=== PATIENT | female | born 1985 | race Caucasian/White ===

== ENCOUNTER 2023-01-13 23:00 | Inpatient (IN) | payer SELFPAY ==
[2023-01-13] MEDS ORDERED: SODIUM CHLORIDE 0.9% 1,000 ML IV STA (23:08)
[2023-01-13] MEDS ORDERED: PIPERACILLIN-TAZOBACTAM 3.375 GM in SODIUM CHLORIDE 0.9% 100 ML IVPB STA (23:09)
[2023-01-13] MEDS ORDERED: ONDANSETRON 4 MG/2 ML VIAL IVP PRN (23:15)
[2023-01-13] MEDS ORDERED: NALOXONE 0.4 MG/ML 1 ML VIAL IV PRN (23:15)
[2023-01-13] MEDS ORDERED: MORPHINE SULFATE 4 MG/ML SYRINGE IV PRN (23:15)
--- NOTE | 2023-01-13 23:19 | ED ---
Abdominal Pain HPI - General Chief Complaint: Abdominal Pain Stated Complaint: Appendicitis Time Seen by Provider: 01/13/23 23:02 Source: patient, EMS, RN notes reviewed Mode of arrival: EMS Limitations: no limitations - History of Present Illness Initial Comments: This is a 37-year-old female who presents to the emergency department for abdominal pain. Patient is a transfer from [facility], where she was diagnosed with appendicitis with perforation earlier today. The right lower quadrant abdominal pain has been present and worsening over the last 3 days. She's had intermittent nausea and a decreased appetite. She has not had any fevers or urinary symptoms. She denies any surgical or medical history. They started her on Zosyn and gave her Toradol prior to arrival, which effectively managed her pain. MD Complaint: abdominal pain Onset/Timin -: days(s) Location: RLQ - Related Data Allergies Allergy/AdvReac Type Severity Reaction Status Date / Time No Known Allergies Allergy Verified 01/13/23 23:19 Review of Systems ROS Statement: Those systems with pertinent positive or pertinent negative responses have been documented in the HPI. ROS Other: All systems not noted in ROS Statement are negative. General Exam Limitations: no limitations General appearance: alert, in no apparent distress Head exam: Present: atraumatic, normocephalic, normal inspection Respiratory exam: Present: normal lung sounds bilaterally. Absent: respiratory distress, wheezes, rales, rhonchi, stridor Cardiovascular Exam: Present: regular rate, normal rhythm, normal heart sounds. Absent: systolic murmur, diastolic murmur, rubs, gallop, clicks GI/Abdominal exam: Present: soft, tenderness (RLQ), hyperactive bowel sounds. Absent: distended Neurological exam: Present: alert, oriented X3, CN II-XII intact Psychiatric exam: Present: normal affect, normal mood Skin exam: Present: warm, dry, intact, normal color. Absent: rash Course Vital Signs 01/13/23 01/14/23 01/14/23 23:10 00:02 02:34 Temperature 98.2 F Pulse Rate 98 97 90 Respiratory 18 16 16 Rate Blood Pressure 109/72 115/72 108/68 O2 Sat by Pulse 95 97 97 Oximetry Medical Decision Making - Medical Decision Making This is a 37-year-old female who presents to the emergency department as a trans starla for appendicitis with perforation. Was pt. sent in by a medical professional or institution? @ -Dr. Moraes at [facility] Did you speak to anyone other than the patient for history? @ -No Did you review nursing and triage notes? @ -Yes, and I agree, it is accurate with regards to the patient's symptoms. Were old charts reviewed? @ -Lab work and imaging obtained at [facility] demonstrating a WBC of 26.[address] scan findings demonstrating acute appendicitis with perforation of the appendix. They started her on IV Zosyn prior to transfer. Differential Diagnosis? @ -Differential Abdominal Pain Women: Appendicitis, Cholecystitis, diverticulosis, ischemic bowel, pancreatitis, hepatitis, UTI, gastroenteritis, AAA, incarcerated hernia, bowel obstruction, constipation, inflammatory bowel, hepatitis, peptic ulcer disease, splenic infarction, perforated viscus, vulvitis, ovarian torsion, PID, kidney stone, placenta abruption, this is not meant to be an all-inclusive list EKG interpreted by me (3pts min.)? @ -Not obtained X-rays interpreted by me (1pt min.)? @ -Not obtained CT interpreted by me (1pt min.)? @ -Not obtained U/S interpreted by me (1pt. min.)? @ -Not obtained What testing was considered but not performed? (CT, X-rays, U/S, labs)? Why? @ -None What meds were considered but not given? Why? @ -None Did you discuss the management of the patient with other professionals? @ -Yes, Dr. Lemons, general surgery, who accepts the patient for admission. Did you reconcile home meds? @ -No Was smoking cessation discussed for >3mins.? @ -No Was critical care preformed (if so, how long)? @ -No Were there social determinants of health that impacted care today? How? (Homelessness, low income, unemployed, alcoholism, drug addiction, transportation, low edu. Level, literacy, decrease access to med. care, nursing home, rehab)? @ -No Was there de-escalation of care discussed even if they declined? (Discuss DNR or withdrawal of care, Hospice)? @ -No What co-morbidities impacted this encounter? (DM, HTN, Smoking, COPD, CAD, Cancer, CVA, Hep., AIDS, mental health diagnosis, sleep apnea, morbid obesity)? @ -None Was patient admitted / discharged? @ -Admitted. Outside records from [facility] were reviewed. Patient was found to have appendicitis with perforation and also met septic criteria with a white blood cell count of 26.4 and tachycardia. They started her on IV fluids and Zosyn. On arrival, IV fluids and Zosyn were continued. She was kept NPO and admitted to general surgery for further management. The disc containing the CT scan sent with the patient from [place] was uploaded to the system for review. Undiagnosed new problem with uncertain prognosis? @ -None Drug Therapy requiring intensive monitoring for toxicity (Heparin, Nitro, Insul in, Cardizem)? @ -None Were any procedures done? @ -None Diagnosis/symptom? @ -Appendicitis with perforation, sepsis Acute, or Chronic, or Acute on Chronic? @ -Acute Uncomplicated (without systemic symptoms) or Complicated (systemic symptoms)? @ -Complicated Side effects of treatment? @ -None Exacerbation, Progression, or Severe Exacerbation] @ -Not applicable Poses a threat to life or bodily function? @ -Yes This case was discussed in detail with the attending ED physician, Dr. Smith. Presentation, findings, and treatment plan discussed in detail as well. - Lab Data Result diagrams: 01/13/23 00:01 01/13/23 00:01 Lab Results 01/13/23 01/13/23 01/13/23 Range/Units 00:01 00:01 00:01 WBC 19.1 H (3.8-10.6) k/uL RBC 3.84 (3.80-5.40) m/uL Hgb 11.8 (11.4-16.0) gm/dL Hct 33.9 L (34.0-46.0) % MCV 88.1 (80.0-100.0) fL MCH 30.6 (25.0-35.0) pg MCHC 34.8 (31.0-37.0) g/dL RDW 13.6 (11.5-15.5) % Plt Count 214 (150-450) k/uL MPV 6.8 Neutrophils % 87 % Lymphocytes % 9 % Monocytes % 3 % Eosinophils % 0 % Basophils % 0 % Neutrophils # 16.6 H (1.3-7.7) k/uL Lymphocytes # 1.7 (1.0-4.8) k/uL Monocytes # 0.5 (0-1.0) k/uL Eosinophils # 0.0 (0-0.7) k/uL Basophils # 0.0 (0-0.2) k/uL Sodium 136 L (137-145) mmol/L Potassium 3.5 (3.5-5.1) mmol/L Chloride 105 (98-107) mmol/L Carbon Dioxide 18 L (22-30) mmol/L Anion Gap 13 mmol/L BUN 11 (7-17) mg/dL Creatinine 0.68 (0.52-1.04) mg/dL Est GFR (CKD-EPI)AfAm >90 (>60 ml/min/1.73 sqM) Est GFR (CKD-EPI)NonAf >90 (>60 ml/min/1.73 sqM) Glucose 114 H (74-99) mg/dL Plasma Lactic Acid Vipul 0.8 (0.7-2.0) mmol/L Calcium 7.7 L (8.4-10.2) mg/dL Total Bilirubin 0.7 (0.2-1.3) mg/dL AST 14 (14-36) U/L ALT 15 (4-34) U/L Alkaline Phosphatase 112 (38-126) U/L Total Protein 6.1 L (6.3-8.2) g/dL Albumin 3.2 L (3.5-5.0) g/dL - Radiology Data Radiology results: report reviewed, image reviewed Disposition Clinical Impression: Perforated appendicitis, Sepsis Disposition: ADMITTED IP TO THIS HOSP
[2023-01-14 00:38] LABS: Basophils % (A) 0 %; Eosinophils % (A) 0 %; HCT 33.9 % (34.0-46.0); HGB 11.8 gm/dL (11.4-16.0); Lymphocytes # (A) 1.7 k/uL (1.0-4.8); Lymphocytes % (A) 9 %; MCH 30.6 pg (25.0-35.0); MCHC 34.8 g/dL (31.0-37.0); MCV 88.1 fL (80.0-100.0); Mean Platelet Volume 6.8; Monocytes # (A) 0.5 k/uL (0-1.0); Monocytes % (A) 3 %; Neutrophils # (A) 16.6 k/uL (1.3-7.7); Neutrophils % (A) 87 %; Platelet Count 214 k/uL (150-450); RBC 3.84 m/uL (3.80-5.40); RDW 13.6 % (11.5-15.5); WBC 19.1 k/uL (3.8-10.6)
[2023-01-14 00:51] LABS: ALT 15 U/L (4-34); AST 14 U/L (14-36); African American GFR (CKD) >90 (>60 ml/min/1.73 sqM); Albumin 3.2 g/dL (3.5-5.0); Alkaline Phosphatase 112 U/L (38-126); Anion Gap 13 mmol/L; Blood Urea Nitrogen 11 mg/dL (7-17); Calcium 7.7 mg/dL (8.4-10.2); Carbon Dioxide 18 mmol/L (22-30); Chloride 105 mmol/L (98-107); Glucose 114 mg/dL (74-99); Non-African American GFR(CKD) >90 (>60 ml/min/1.73 sqM); Potassium 3.5 mmol/L (3.5-5.1); Sodium 136 mmol/L (137-145); Total Bilirubin 0.7 mg/dL (0.2-1.3); Total Protein 6.1 g/dL (6.3-8.2)
[2023-01-14] MEDS: KETOROLAC 15 MG/ML 1 ML VIAL IVP PRN ×2 (02:37→20:21)
[2023-01-14] MEDS ORDERED: ACETAMINOPHEN IV (For NPO) 1,000 MG in EMPTY BAG 1 BAG IVPB PRN (04:07)
[2023-01-14 06:51] LABS: HCG,Qualitative Serum Not Detected
[2023-01-14] MEDS: PIPERACILLIN-TAZOBACTAM 3.375 GM in SODIUM CHLORIDE 0.9% 100 ML IVPB SCH ×2 (08:35→21:29)
--- NOTE | 2023-01-14 13:13 | P.GSHP ---
History of Present Illness H&P Date: 01/14/23 CHIEF COMPLAINT: Abdominal pain HISTORY OF PRESENT ILLNESS: This is a 37-year-old female presented to the hospital with complaints of right lower quadrant abdominal pain that started 4 days ago. She does complain of having nausea and vomiting. She initially went to [facility] computed tomography scan abdomen and pelvis had shown evidence of a perforated appendicitis. Patient was then transferred to [facility] for surgical evaluation. Patient had evidence of leukocytosis and t achycardia on admission at [facility]. She denies any prior abdominal surgery. Denies any medical history of cardiac history. She reports having some chills. PAST MEDICAL HISTORY: See list. PAST SURGICAL HISTORY: See list. MEDICATIONS: See list. ALLERGIES: See list. SOCIAL HISTORY: No illicit drug use. REVIEW OF SYSTEMS: CONSTITUTIONAL: Denies fever or chills. HEENT: Denies blurred vision, vision changes, or eye pain. Denies hemoptysis ENDOCRINE: Denies heat or cold intolerance. CARDIOVASCULAR: Denies chest pain or pressure. RESPIRATORY: No shortness of breath. GASTROINTESTINAL: Please refer to HPI NEURO: Denies history of seizures. PSYCH: No depression or suicidal ideation HEMATOLOGIC: Denies bleeding disorders. LYMPHATIC: The patient denies any lumps and bumps around the neck. GENITOURINARY: Denies any blood in urine or increased urinary frequency. MUSCULOSKELETAL: Denies myalgias. Denies joint swelling. Denies decreased range of motion beyond patients baseline. SKIN: Denies pruitis. Denies rash. PHYSICAL EXAM: VITAL SIGNS: Reviewed GENERAL: Well-developed in no acute distress. HEENT: No sclera icterus. Extraocular movements grossly intact. Moist buccal mucosa. Head is atraumatic, normocephalic. Hears conversational speech. No nasal drainage. NECK: Supple without lymphadenopathy. CHEST: Non-labored respirations and equal bilateral excursions. CARDIOVASCULAR: Palpable 2+ radial pulses. ABDOMEN: Soft. Mildly distended. tenderness with palpation to right lower quadrant MUSCULOSKELETAL: No clubbing or cyanosis. NEUROLOGIC: No focal or lateralizing signs. Cranial nerves II through XII grossly intact. PSYCH: Appropriate affect. Alert and oriented to person, place and time. SKIN: Well perfused. Good skin turgor. LABORATORY DATA: WBC 19.1 HGB 11.8 Plt 214 Na 136 K 3.5 Cr 0.68 LFTs normal HCG not detected IMAGING: COMPUTED TOMOGRAPHY scan abdomen and pelvis acute appendicitis with perforated appendix. The appendix is dilated with marked surrounding inflammatory changes. There is a small amount of adjacent extra luminal air. There is a nonspecific 3.5 mm radiopaque foreign body seen within the appendix. There is air and fluid collection seen in the right lower quadrant measuring 2 x 2 x 3.2 x 5.4 cm suspicious for early developing abscess. ASSESSMENT: 1. Acute appendicitis with perforation 2. Leukocytosis PLAN: -Patient scheduled for Robotic appendectomy today with Dr. Lemons -Continue IV antibiotics -Continue IV fluids -Continue pain management -Keep patient nothing by mouth Physician Direct Service Worker note has been reviewed by physician. Signing provider agrees with the documented findings, assessment, and plan of care. Past Medical History Additional Past Medical History / Comment(s): appendicitis History of Any Multi-Drug Resistant Organisms: None Reported Past Surgical History: No Surgical Hx Reported Past Psychological History: No Psychological Hx Reported Smoking Status: Never smoker Past Alcohol Use History: None Reported Past Drug Use History: None Reported Medications and Allergies Home Medications Medication Instructions Recorded Confirmed Type No Known Home Medications 01/14/23 01/14/23 History Allergies Allergy/AdvReac Type Severity Reaction Status Date / Time No Known Allergies Allergy Verified 01/14/23 07:24 Surgical - Exam Vital Signs Temp Pulse Resp BP Pulse Ox 98.2 F 98 18 109/72 95 01/13/23 23:10 01/13/23 23:10 01/13/23 23:10 01/13/23 23:10 01/13/23 23:10 Results - Labs 01/13/23 00:01 01/13/23 00:01 Abnormal Lab Results - Last 24 Hours (Table) 01/13/23 01/13/23 Range/Units 00:01 00:01 WBC 19.1 H (3.8-10.6) k/uL Hct 33.9 L (34.0-46.0) % Neutrophils # 16.6 H (1.3-7.7) k/uL Sodium 136 L (137-145) mmol/L Carbon Dioxide 18 L (22-30) mmol/L Glucose 114 H (74-99) mg/dL Calcium 7.7 L (8.4-10.2) mg/dL Total Protein 6.1 L (6.3-8.2) g/dL Albumin 3.2 L (3.5-5.0) g/dL Diabetes panel 01/13/23 Range/Units 00:01 Sodium 136 L (137-145) mmol/L Potassium 3.5 (3.5-5.1) mmol/L Chloride 105 (98-107) mmol/L Carbon Dioxide 18 L (22-30) mmol/L BUN 11 (7-17) mg/dL Creatinine 0.68 (0.52-1.04) mg/dL Glucose 114 H (74-99) mg/dL Calcium 7.7 L (8.4-10.2) mg/dL AST 14 (14-36) U/L ALT 15 (4-34) U/L Alkaline Phosphatase 112 (38-126) U/L Total Protein 6.1 L (6.3-8.2) g/dL Albumin 3.2 L (3.5-5.0) g/dL Calcium panel 01/13/23 Range/Units 00:01 Calcium 7.7 L (8.4-10.2) mg/dL Albumin 3.2 L (3.5-5.0) g/dL Pituitary panel 01/13/23 Range/Units 00:01 Sodium 136 L (137-145) mmol/L Potassium 3.5 (3.5-5.1) mmol/L Chloride 105 (98-107) mmol/L Carbon Dioxide 18 L (22-30) mmol/L BUN 11 (7-17) mg/dL Creatinine 0.68 (0.52-1.04) mg/dL Glucose 114 H (74-99) mg/dL Calcium 7.7 L (8.4-10.2) mg/dL Adrenal panel 01/13/23 Range/Units 00:01 Sodium 136 L (137-145) mmol/L Potassium 3.5 (3.5-5.1) mmol/L Chloride 105 (98-107) mmol/L Carbon Dioxide 18 L (22-30) mmol/L BUN 11 (7-17) mg/dL Creatinine 0.68 (0.52-1.04) mg/dL Glucose 114 H (74-99) mg/dL Calcium 7.7 L (8.4-10.2) mg/dL Total Bilirubin 0.7 (0.2-1.3) mg/dL AST 14 (14-36) U/L ALT 15 (4-34) U/L Alkaline Phosphatase 112 (38-126) U/L Total Protein 6.1 L (6.3-8.2) g/dL Albumin 3.2 L (3.5-5.0) g/dL
[2023-01-14] MEDS ORDERED: LACTATED RINGERS 1,000 ML IV ONE ×2 (15:04→16:38)
[2023-01-14] MEDS ORDERED: LIDOCAINE 1% INJ 10MG/ML (20 ML MDV) ONE (15:24)
[2023-01-14] MEDS ORDERED: MIDAZOLAM 2 MG/2 ML VIAL ONE (15:24)
[2023-01-14] MEDS ORDERED: SUCCINYLCHOLINE CHLORIDE 200 MG/10 ML VIAL IV ONE (15:24)
[2023-01-14] MEDS ORDERED: NEOSTIGMINE 1 MG/ML 10 ML VIAL ONE (15:24)
[2023-01-14] MEDS ORDERED: PROPOFOL 10 MG/ML 20 ML VIAL IV ONE (15:24)
[2023-01-14] MEDS ORDERED: ROCURONIUM 10 MG/ML (5 ML VIAL) IV ONE (15:24)
[2023-01-14] MEDS ORDERED: KETOROLAC 15 MG/ML 1 ML VIAL ONE (15:24)
[2023-01-14] MEDS ORDERED: GLYCOPYRROLATE 0.2 MG/ML 2 ML VIAL ONE (15:24)
[2023-01-14] MEDS ORDERED: HYDROmorphone (PF) 1 MG/ML ONE (15:24)
[2023-01-14] MEDS ORDERED: fentaNYL (PF) 50 MCG/ML 2 ML AMP ONE (15:24)
[2023-01-14] MEDS ORDERED: LIDOCAINE 0.5%-EPI 1:200,000 50 ML VIAL SQ ONE ×2 (15:51→15:56)
[2023-01-14] MEDS ORDERED: METOCLOPRAMIDE 5 MG/ML 2 ML VIAL IVP PRN (17:37)
[2023-01-14] MEDS ORDERED: ONDANSETRON 4 MG/2 ML VIAL IVP ONE (17:40)
[2023-01-14] MEDS ORDERED: DEXAMETHASONE SOD PHOSPHATE 4 MG/ML 1 ML VIAL IV ONE (17:40)
[2023-01-14] MEDS ORDERED: HYDROmorphone 0.5 MG/0.5 ML SYRINGE IVP ONE ×2 (18:03→18:16)
--- NOTE | 2023-01-14 21:17 | P.OP ---
Date of Procedure: 01/14/23 Description of Procedure: SURGEON: EDWARD GUERRA MD Preoperative Diagnosis: 1. Acute appendicitis, ruptured 2. Seven weeks post- 3. Morbid obesity due to excess calories, BMI 35.3 Postoperative Diagnosis: 1. Acute appendicitis ruptured with appendiceal abscess and localized peritonitis 2. Seven weeks post- 3. Morbid obesity due to excess calories, BMI 35.3 Procedure(s) Performed: 1. Robotic-assisted daVinci Xi laparoscopic appendectomy 2. Drainage of appendiceal abscess Anesthesia: GETA, local Estimated Blood Loss (ml): 5 Pathology: other (appendix), anerobic and aerobic cultures Condition: stable Operative Findings: 1. Perforated appendicitis with localized peritonitis 2. Drainage of appendiceal abscess over 30 mL foul 3. Moderate gaseous distention. INDICATIONS: The patient is a 37-year-old female who presents with perforated acute appendicitis. Benefits and risks, including infection, open surgery, need for additional surgery and bleeding for additional surgery was discussed at length. Informed consent was obtained. All questions of the patient and family were answered. DESCRIPTION: The patient was transferred to the operating room and placed in supine position. The patient had previously voided. The abdomen was then prepped and draped in standard sterile fashion as Ioban was placed along the abdomen to minimize any contamination of skin floor. After a timeout protocol was performed, attention was then brought to the left upper quadrant whereby a 0 degree 5 mm laparoscopic trocar entry was performed. The abdominal cavity was entered and insufflated to 12 mmHg pressure, which was tolerated well. Diagnostic laparoscopy demonstrated no injury to bowel, viscera or mesentery. Three robotic 8-mm trocars were placed along the left lateral quadrant, 10-cm lateral to the midline. An 8-mm port and 12 mm port were placed along the left upper quadrant and two 8-mm ports at the left lateral abdominal wall. Ports were placed 8 cm apart from each other including 15-20 cm away from the target anatomy of the right pelvis. The patient was then placed in Trendelenburg position, at least 14 down and right side up at least 7. The robotic da Ashleigh XI system was primed and docked from the left side of the patient. Using atraumatic graspers, suction manager intensive care unit, and vessel sealer, the robotic system was docked and primed as described. Instruments were interchanged by the mailroom assistant including graspers, robotic stapler and vessel sealer. Next, attention was brought to identify the cecum. The omentum was adherent to the right lower quadrant. The tinea coli was traced to the base of the appendix. Dense adhesions were found. The cecum was mobilized from the pelvis. The appendix was dissected free from its surrounding tissues with rupture and leakage of stool at the mid-body of the appendix. Spillage was aspirated and dried using a sponge. An appendiceal abscess of 30-mL was drained. The meso-appendix was mobilized using vessel sealer and divided using robotic 45-mm black and blue staple loads. The base of appendix was divided using 45-mm white staple load. The staple line was hemostatic. Hemostasis was checked prior to undocking the robot. The robot was undocked. I re-scrubbed into the case. The specimen was removed from the abdominal cavity with an Endo Catch bag through the 12 mm trocar at the left upper quadrant. All instruments and pneumoperitoneum were evacuated from the abdominal cavity. Local anesthetic was infiltrated to all wounds for postop analgesia. All incisions were also cleansed with diluted hydrogen peroxide. Optifoam was placed along the left upper quadrant incision. The incisions were closed with 4-0 Monocryl. Exofin glue was applied to the rest of the skin incisions. The patient had tolerated the procedure well. The patient was extubated successfully. The patient was transferred to the postanesthesia care unit in stable condition.
[2023-01-15] MEDS: HYDROmorphone 1 MG/ML 1 ML SYRINGE IVP PRN ×2 (01:12→06:39)
[2023-01-15] MEDS: KETOROLAC 15 MG/ML 1 ML VIAL IVP PRN (04:36)
[2023-01-15] MEDS: PIPERACILLIN-TAZOBACTAM 3.375 GM in SODIUM CHLORIDE 0.9% 100 ML IVPB SCH ×3 (04:37→21:27)
[2023-01-15 08:33] LABS: Basophils # (A) 0.01 X 10*3/uL (0.00-0.10); Basophils % (A) 0.1 %; Eosinophils # (A) 0 X 10*3/uL (0.04-0.35); Eosinophils % (A) 0 %; HCT 32.2 % (37.2-46.3); HGB 10.6 g/dL (12.0-15.0); Lymphocytes # (A) 1.11 X 10*3/uL (0.90-5.00); Lymphocytes % (A) 9.7 %; MCH 29.6 pg (27.0-32.0); MCHC 32.9 g/dL (32.0-37.0); MCV 89.9 FL (80.0-97.0); Mean Platelet Volume 9.3 FL (9.5-12.2); Monocytes # (A) 0.46 X 10*3/uL (0.20-1.00); NRBC Per 100 WBC 0 X 10*3/uL (0.00-0.01); Neutrophils # (A) 9.88 X 10*3/uL (1.80-7.70); Neutrophils % (A) 85.9 %; Platelet Count 230 X 10*3/uL (140-440); RBC 3.58 X 10*6/uL (4.10-5.20); RDW 13.8 % (11.5-14.5)
[2023-01-15] MEDS: ENOXAPARIN 30 MG/0.3 ML SYRINGE SQ SCH (08:37)
[2023-01-15 09:23] LABS: BUN/Creat Ratio 23.17 Ratio (12.00-20.00); Blood Urea Nitrogen 13.9 mg/dL (9.0-27.0); Calcium 8.4 mg/dL (8.7-10.3); Carbon Dioxide 18.7 mmol/L (21.6-31.8); Chloride 107 mmol/L (96-109); Glucose 112 mg/dL (70-110); Sodium 138 mmol/L (135-145)
[2023-01-15] MEDS ORDERED: ONDANSETRON 4 MG/2 ML VIAL IVP PRN (11:01)
[2023-01-15] MEDS: SIMETHICONE 40 MG/0.6 ML DROPS 2,000 MG/30 ML BOTTLE PO SCH ×3 (11:50→21:27)
[2023-01-15] MEDS: SODIUM CHLORIDE 0.9% 1,000 ML IV SCH ×2 (11:52→18:58)
[2023-01-15] MEDS: SCOPOLAMINE 1 MG/72 HR PATCH TRANSDERM SCH (11:52)
--- NOTE | 2023-01-15 14:01 | P.PN ---
Subjective Progress Note Date: 01/15/23 CHIEF COMPLAINT: Ruptured appendix HISTORY OF PRESENT ILLNESS: Patient postop day #1 status post robotic-assisted laparoscopic appendectomy and drainage of appendiceal abscess. Patient complains of gas pains and abdominal bloating. She feels nauseous. She denies any vomiting. She is having small amount of flatus. She did have a low-grade temp of 100.2 history evening. She's been mildly tachycardic. She does feel thirsty. Decreased appetite. WBC is down from 19.1-11.5 PHYSICAL EXAM: VITAL SIGNS: Reviewed GENERAL: Well-developed in no acute distress. HEENT: No sclera icterus. Extraocular movements grossly intact. Moist buccal mucosa. Head is atraumatic, normocephalic. Hears conversational speech. No nasal drainage. NECK: Supple without lymphadenopathy. CHEST: Non-labored respirations and equal bilateral excursions. CARDIOVASCULAR: Palpable 2+ radial pulses. ABDOMEN: Soft. Distended. Tenderness at incision sites on the left abdomen MUSCULOSKELETAL: No clubbing or cyanosis. NEUROLOGIC: No focal or lateralizing signs. Cranial nerves II through XII grossly intact. PSYCH: Appropriate affect. Alert and oriented to person, place and time. SKIN: Well perfused. Good skin turgor. ASSESSMENT: 1. Acute appendicitis ruptured with appendiceal abscess and localized per itonitis 2. Seven weeks post- 3. Morbid obesity due to excess calories, BMI 35.3 PLAN: -Downgrade diet to full liquids -Add Ensure compact with vanilla flavor -Consult waiter/waitress take out regarding protein nutrition support -Encourage patient to ambulate -Start IV fluids, Normal saline at 125 mL per hour -Continue pain management. Add scheduled Tylenol -Continue antiemetics. Add scopolamine patch. Change Zofran to every 6 hours as needed. -Encouraged patient to use incentive spirometer -GI prophylaxis Protonix and DVT prophylaxis Lovenox Physician Activities Volunteer note has been reviewed by physician. Signing provider agrees with the documented findings, assessment, and plan of care. Objective - Vital Signs Vital signs: Vital Signs Temp 97.9 F 01/15/23 12:00 Pulse 110 H 01/15/23 12:00 Resp 16 01/15/23 12:00 BP 100/67 01/15/23 12:00 Pulse Ox 94 L 01/15/23 12:00 FiO2 Intake & Output 01/14/23 01/15/23 01/15/23 18:59 06:59 18:59 Intake Total 1650 1080 Output Total 5 Balance 1645 1080 Weight 87.543 kg Intake: IV 1650 Oral 1080 Output: Estimated Blood Loss 5 Other: Voiding Method Bedside Commode # Voids 1 - Labs CBC & Chem 7: 01/15/23 06:07 01/15/23 06:07 Labs: Abnormal Lab Results - Last 24 Hours (Table) 01/15/23 01/15/23 Range/Units 06:07 06:07 WBC 11.50 H (4.50-10.00) X 10*3/uL RBC 3.58 L (4.10-5.20) X 10*6/uL Hgb 10.6 L (12.0-15.0) g/dL Hct 32.2 L (37.2-46.3) % MPV 9.3 L (9.5-12.2) FL Neutrophils # 9.88 H (1.80-7.70) X 10*3/uL Eosinophils # 0 L (0.04-0.35) X 10*3/uL Carbon Dioxide 18.7 L (21.6-31.8) mmol/L Anion Gap 12.30 H (4.00-12.00) mmol/L BUN/Creatinine Ratio 23.17 H (12.00-20.00) Ratio Glucose 112 H (70-110) mg/dL Calcium 8.4 L (8.7-10.3) mg/dL Microbiology - Last 24 Hours (Table) 01/13/23 23:00 Blood Culture - Preliminary Blood 01/13/23 00:01 Blood Culture - Preliminary Blood
[2023-01-15] MEDS: ACETAMINOPHEN TAB 500 MG TAB PO SCH ×3 (18:50→23:51)
[2023-01-15] MEDS: PANTOPRAZOLE 40 MG TABLET PO SCH (18:50)
--- NOTE | 2023-01-15 22:28 | P.CONS ---
History of Present Illness - Reason for Consult Consult date: 01/15/23 Peritonitis, perforated appendicitis Requesting physician: Ban Lemons - Chief Complaint Abdominal pain x few days - History of Present Illness Patient is a 37-year-old female no significant past medical history presenting to the hospital for abdominal pain apparently the patient initially presented to [facility] with the patient was diagnosed with appendicitis with perforation for the patient was transferred to [facility] for further management, apparently the patient abdominal pain has been going on for about 3 days has been most of the lower abdominal area describing it to be sharp stent noted in severity with some nausea but no vomiting patient on presentation to the hospital was afebrile, the patient did spike a low-grade fever 100.2 yesterday afternoon patient has been tachycardic but not hypotensive or hypoxic and no need for supplemental oxygen patient did have white count 19.1 which is down to 11.50 creatinine 0.6 his liver enzymes are normal patient was taken to the OR patient was noticed to have acute appendicitis ruptured with epidural abscess and localized peritonitis s/p laparoscopic appendectomy and d rainage of appendicular abscess patient was started on Zosyn infectious disease was consulted for further management of antibiotic therapy patient complaining of mostly abdominal distention since morning has been nauseated but no vomiting has not passed any gas no chest pain did have slight difficulty breathing because of abdominal distention Review of Systems Positive point and negatives has been mentioned in the HPI, complete review of systems was performed and all other systems are negative Past Medical History Additional Past Medical History / Comment(s): appendicitis History of Any Multi-Drug Resistant Organisms: None Reported Past Surgical History: No Surgical Hx Reported Past Anesthesia/Blood Transfusion Reactions: No Reported Reaction Past Psychological History: No Psychological Hx Reported Smoking Status: Never smoker Past Alcohol Use History: None Reported Past Drug Use History: None Reported Medications and Allergies Home Medications Medication Instructions Recorded Confirmed Type No Known Home Medications 01/14/23 01/14/23 History Allergies Allergy/AdvReac Type Severity Reaction Status Date / Time No Known Allergies Allergy Verified 01/14/23 07:24 Physical Exam Vitals: Vital Signs Temp Pulse Pulse Pulse Resp BP BP 01/15/23 07:20 98.3 F 100 16 108/67 01/15/23 02:00 98.8 F 104 H 15 99/63 01/14/23 22:15 95 123/75 01/14/23 21:15 105 H 111/70 01/14/23 20:45 100 110/73 01/14/23 20:15 104 H 115/76 01/14/23 20:00 99 15 111/75 01/14/23 19:45 100 109/65 01/14/23 19:30 97.8 F 93 15 113/73 01/14/23 18:40 100 16 104/60 01/14/23 18:25 83 16 108/62 01/14/23 18:10 98.2 F 92 16 118/57 01/14/23 17:55 91 16 111/65 01/14/23 17:40 91 16 117/66 01/14/23 17:24 100.2 F H 100 14 105/68 01/14/23 14:43 98.6 F 109 H 16 109/65 01/14/23 14:00 85 16 114/68 01/14/23 13:00 98 16 111/71 Pulse Ox 01/15/23 07:20 93 L 01/15/23 02:00 93 L 01/14/23 22:15 93 L 01/14/23 21:15 93 L 01/14/23 20:45 94 L 01/14/23 20:15 97 01/14/23 20:00 96 01/14/23 19:45 94 L 01/14/23 19:30 98 01/14/23 18:40 95 01/14/23 18:25 93 L 01/14/23 18:10 94 L 01/14/23 17:55 99 01/14/23 17:40 98 01/14/23 17:24 98 01/14/23 14:43 98 01/14/23 14:00 98 01/14/23 13:00 98 Intake and Output 01/14/23 01/15/23 01/15/23 22:59 06:59 14:59 Intake Total 1650 1080 Output Total 5 Balance 1645 1080 Intake: IV 1650 Oral 1080 Output: Estimated Blood Loss 5 Other: Voiding Method Bedside Commode # Voids 1 GENERAL DESCRIPTION: Middle-aged female lying in bed, no distress. No tachypnea or accessory muscle of respiration use. HEENT: Shows Pallor , no scleral icterus. Oral mucous membrane is dry. No phary ngeal erythema or thrush NECK: Trachea central, no thyromegaly. LUNGS: Unlabored breathing. Clear to auscultation anteriorly. No wheeze or crackle. HEART: S1, S2, regular rate and rhythm. No loud murmur ABDOMEN: Soft however the patient did have abdominal distention and tenderness , EXTREMITIES: No edema of feet. SKIN: No rash, no masses palpable. NEUROLOGICAL: The patient is awake, alert, oriented x3, mood and affect normal. Results CBC & Chem 7: 01/15/23 06:07 01/15/23 06:07 Labs: Abnormal Lab Results - Last 24 Hours (Table) 01/15/23 01/15/23 Range/Units 06:07 06:07 WBC 11.50 H (4.50-10.00) X 10*3/uL RBC 3.58 L (4.10-5.20) X 10*6/uL Hgb 10.6 L (12.0-15.0) g/dL Hct 32.2 L (37.2-46.3) % MPV 9.3 L (9.5-12.2) FL Neutrophils # 9.88 H (1.80-7.70) X 10*3/uL Eosinophils # 0 L (0.04-0.35) X 10*3/uL Carbon Dioxide 18.7 L (21.6-31.8) mmol/L Anion Gap 12.30 H (4.00-12.00) mmol/L BUN/Creatinine Ratio 23.17 H (12.00-20.00) Ratio Glucose 112 H (70-110) mg/dL Calcium 8.4 L (8.7-10.3) mg/dL Assessment and Plan (1) Peritonitis Current Visit: Yes Status: Acute Code(s): K65.9 - PERITONITIS, UNSPECIFIED SNOMED Code(s): 81799574 (2) Perforated appendicitis Current Visit: Yes Status: Acute Code(s): K35.32 - AC APPENDICITIS W PERF, LOC PERITONITIS, & GANGR, W/O ABSCS SNOMED Code(s): 54764356 (3) Sepsis Current Visit: Yes Status: Acute Code(s): A41.9 - SEPSIS, UNSPECIFIED ORGANISM SNOMED Code(s): 44194290 Plan: 1patient presented hospital with sepsis in this patient who did have a fever and tachycardia elevated white count source is perforated appendicitis in this patient who is status post laparoscopic appendectomy and drainage of the localized abscess, the likely organism need to cover will begin to do gram- negative both aerobic and anaerobes 2-patient continued on Zosyn 3.375 g every 8 hours while waiting for the culture to finalize 3-abdominal distention need to monitor closely may need NG discussed with family at the bedside We will follow on clinical condition and cultures to further adjust medication if needed Thank you for this consultation we will follow the patient along with you Dictation was produced using [employer] dictation software. please excuse any grammatical, word or spelling errors. Time with Patient: Greater than 30
[2023-01-16] MEDS: ACETAMINOPHEN TAB 500 MG TAB PO SCH ×4 (06:21→23:47)
[2023-01-16] MEDS: PIPERACILLIN-TAZOBACTAM 3.375 GM in SODIUM CHLORIDE 0.9% 100 ML IVPB SCH ×3 (06:21→20:51)
[2023-01-16] MEDS: SODIUM CHLORIDE 0.9% 1,000 ML IV SCH ×3 (06:27→17:46)
[2023-01-16] MEDS: PANTOPRAZOLE 40 MG TABLET PO SCH (08:57)
[2023-01-16] MEDS: ENOXAPARIN 30 MG/0.3 ML SYRINGE SQ SCH (08:57)
[2023-01-16] MEDS: SIMETHICONE 40 MG/0.6 ML DROPS 2,000 MG/30 ML BOTTLE PO SCH ×4 (08:57→20:51)
[2023-01-16 09:40] LABS: Basophils % (A) 0 %; Eosinophils % (A) 0 %; HCT 32.4 % (34.0-46.0); HGB 10.5 gm/dL (11.4-16.0); Lymphocytes # (A) 1.2 k/uL (1.0-4.8); Lymphocytes % (A) 9 %; MCH 29.5 pg (25.0-35.0); MCHC 32.4 g/dL (31.0-37.0); MCV 91.2 fL (80.0-100.0); Mean Platelet Volume 8.6; Monocytes # (A) 0.5 k/uL (0-1.0); Monocytes % (A) 4 %; Neutrophils # (A) 11.5 k/uL (1.3-7.7); Neutrophils % (A) 86 %; Platelet Count 264 k/uL (150-450); RBC 3.55 m/uL (3.80-5.40); WBC 13.5 k/uL (3.8-10.6)
[2023-01-16 12:07] LABS: African American GFR (CKD) >90 (>60 ml/min/1.73 sqM); Anion Gap 10 mmol/L; Blood Urea Nitrogen 9 mg/dL (7-17); Calcium 8.1 mg/dL (8.4-10.2); Carbon Dioxide 21 mmol/L (22-30); Chloride 105 mmol/L (98-107); Glucose 135 mg/dL (74-99); Non-African American GFR(CKD) >90 (>60 ml/min/1.73 sqM); Potassium 3.7 mmol/L (3.5-5.1); Sodium 136 mmol/L (137-145)
[2023-01-16 12:42] VITALS: BMI 35.3
--- NOTE | 2023-01-16 18:14 | P.PN ---
Subjective Progress Note Date: 01/16/23 Principal diagnosis: Ruptured appendicitis Patient resting quietly, notes passage of some flatus but less than yesterday, has had some diarrhea Denies fever or chills, no emesis, tolerating small amounts of full liquids. Objective - Vital Signs Vital signs: Vital Signs Temp 98.9 F 01/16/23 14:00 Pulse 94 01/16/23 14:00 Resp 16 01/16/23 14:00 BP 114/71 01/16/23 14:00 Pulse Ox 96 01/16/23 14:00 FiO2 Intake & Output 01/15/23 01/16/23 01/16/23 18:59 06:59 18:59 Intake Total 120 1620 Balance 120 1620 Weight 87.543 kg Intake: Oral 120 1620 Other: Voiding Method Toilet # Voids 2 4 # Bowel Movements 1 5 1 - Constitutional General appearance: Present: average body habitus, no acute distress - Respiratory Respiratory: bilateral: CTA (Nonlabored respirations) - Cardiovascular Rhythm: regular - Gastrointestinal General gastrointestinal: Present: decreased bowel sounds - Neurologic Neurologic Comment(s): Alert and oriented 3, appropriate affect - Labs CBC & Chem 7: 01/16/23 07:08 01/16/23 07:08 Labs: Abnormal Lab Results - Last 24 Hours (Table) 01/16/23 01/16/23 Range/Units 07:08 07:08 WBC 13.5 H (3.8-10.6) k/uL RBC 3.55 L (3.80-5.40) m/uL Hgb 10.5 L (11.4-16.0) gm/dL Hct 32.4 L (34.0-46.0) % Neutrophils # 11.5 H (1.3-7.7) k/uL Sodium 136 L (137-145) mmol/L Carbon Dioxide 21 L (22-30) mmol/L Glucose 135 H (74-99) mg/dL Calcium 8.1 L (8.4-10.2) mg/dL Microbiology - Last 24 Hours (Table) 01/13/23 23:00 Blood Culture - Preliminary Blood 01/13/23 00:01 Blood Culture - Preliminary Blood 01/14/23 16:50 Gram Stain - Preliminary Other - Other Wound Culture - Preliminary Gram Neg Bacilli Assessment and Plan Assessment: 37-year-old female, postop day 2 laparoscopic appendectomy for ruptured appendix Mild ileus resolving remains, tolerating limited liquids Afebrile, vital stable WBC 13.5 Continue antibiotics, encourage ambulation, await more full resolution of ileus Continue DVT prophylaxis, recheck labs in a.m. Time with Patient: Less than 30
--- NOTE | 2023-01-16 22:42 | P.PN ---
Subjective Progress Note Date: 01/16/23 Principal diagnosis: Reason for follow-up is perforated appendicitis and peritonitis Patient is a 37-year-old female who was brought to the hospital with abdominal pain has been diagnosed with the perforated appendicitis s/p laparoscopic appendectomy. On today's evaluation that is 01/16/2023 patient did have low-grade fever 100.4 last night the patient is afebrile since time patient is breathing comfortably on room air no chest pain shortness of breath or cough abdominal discomfort and distention has slightly decreased some nausea but no vomiting, patient white count is 13.5 creatinine 0.57 abdominal culture with gram- negative bacilli. Objective - Vital Signs Vital signs: Vital Signs Temp 98.9 F 01/16/23 08:00 Pulse 97 01/16/23 08:00 Resp 16 01/16/23 08:00 BP 110/73 01/16/23 08:00 Pulse Ox 94 L 01/16/23 08:00 FiO2 Intake & Output 01/15/23 01/16/23 01/16/23 18:59 06:59 18:59 Intake Total 120 Balance 120 Intake: Oral 120 Other: Voiding Method Toilet # Voids 2 # Bowel Movements 1 5 - Exam GENERAL DESCRIPTION: Middle-age female up in the room in no distress RESPIRATORY SYSTEM: Unlabored breathing , clear to auscultation anteriorly HEART: S1 S2 regular rate and rhythm , ABDOMEN: Mild distention EXTREMITIES: No edema feet - Labs CBC & Chem 7: 01/16/23 07:08 01/16/23 07:08 Labs: Abnormal Lab Results - Last 24 Hours (Table) 01/16/23 Range/Units 07:08 WBC 13.5 H (3.8-10.6) k/uL RBC 3.55 L (3.80-5.40) m/uL Hgb 10.5 L (11.4-16.0) gm/dL Hct 32.4 L (34.0-46.0) % Neutrophils # 11.5 H (1.3-7.7) k/uL Microbiology - Last 24 Hours (Table) 01/14/23 16:50 Gram Stain - Preliminary Other - Other Wound Culture - Preliminary Gram Neg Bacilli 01/13/23 23:00 Blood Culture - Preliminary Blood 01/13/23 00:01 Blood Culture - Preliminary Blood Assessment and Plan (1) Peritonitis Current Visit: Yes Status: Acute Code(s): K65.9 - PERITONITIS, UNSPECIFIED SNOMED Code(s): 37596016 (2) Perforated appendicitis Current Visit: Yes Status: Acute Code(s): K35.32 - AC APPENDICITIS W PERF, LOC PERITONITIS, & GANGR, W/O ABSCS SNOMED Code(s): 31983308 (3) Sepsis Current Visit: Yes Status: Acute Code(s): A41.9 - SEPSIS, UNSPECIFIED ORGANISM SNOMED Code(s): 81569754 Plan: 1patient presented hospital with sepsis in this patient who did have a fever and tachycardia elevated white count source is perforated appendicitis in this patient who is status post laparoscopic appendectomy and drainage of the localized abscess, the likely organism need to cover will begin to do gram- negative both aerobic and anaerobes 2patient seen gradual symptomatic improvement to continue with the Zosyn while waiting for the culture to finalize slight worsening of the white count will monitor closely question concern answered Dictation was produced using [employer] dictation software. please excuse any grammatical, word or spelling errors.
[2023-01-17] MEDS: PIPERACILLIN-TAZOBACTAM 3.375 GM in SODIUM CHLORIDE 0.9% 100 ML IVPB SCH ×3 (04:17→21:05)
[2023-01-17] MEDS: SODIUM CHLORIDE 0.9% 1,000 ML IV SCH ×3 (04:18→21:05)
[2023-01-17] MEDS: ACETAMINOPHEN TAB 500 MG TAB PO SCH ×3 (06:38→17:59)
[2023-01-17 08:17] LABS: HCT 27.6 % (34.0-46.0); Hypochromasia Slight; MCH 30.2 pg (25.0-35.0); MCHC 32.7 g/dL (31.0-37.0); MCV 92.3 fL (80.0-100.0); Mean Platelet Volume 7.9; Platelet Count 232 k/uL (150-450); RBC 2.99 m/uL (3.80-5.40); RDW 14.1 % (11.5-15.5); WBC 8.8 k/uL (3.8-10.6)
[2023-01-17] MEDS: ENOXAPARIN 30 MG/0.3 ML SYRINGE SQ SCH (09:17)
[2023-01-17] MEDS: PANTOPRAZOLE 40 MG TABLET PO SCH (09:17)
[2023-01-17] MEDS: SIMETHICONE 40 MG/0.6 ML DROPS 2,000 MG/30 ML BOTTLE PO SCH ×4 (09:18→21:04)
[2023-01-17 12:05] LABS: Potassium 3.6 mmol/L (3.5-5.1)
--- NOTE | 2023-01-17 15:10 | P.PN ---
Subjective Progress Note Date: 01/17/23 Family is at bedside. "I feel so much better." She is ambulating in hallways and tolerating diet. Confirmed with infectious disease team for oral antibiotics after discharge per review of culture results. Advance diet for discharge tomorrow. Discussion of breast feeding parameters reviewed including no breast feeding while on antibiotics. Pump and dump breast milk interim. May resume breast feeding 48-hrs after completion of antibiotic treatment and dumping breast milk. Objective - Vital Signs Vital signs: Vital Signs Temp 98 F 01/17/23 13:17 Pulse 88 01/17/23 13:17 Resp 17 01/17/23 13:17 BP 113/78 01/17/23 13:17 Pulse Ox 97 01/17/23 13:17 FiO2 Intake & Output 01/16/23 01/17/23 01/17/23 18:59 06:59 18:59 Intake Total 1620 2510 Balance 1620 2510 Weight 87.543 kg Intake: Oral 1620 2510 Other: Voiding Method Toilet # Voids 4 4 # Bowel Movements 1 2 - Labs CBC & Chem 7: 01/17/23 07:10 01/17/23 07:10 Labs: Abnormal Lab Results - Last 24 Hours (Table) 01/17/23 01/17/23 Range/Units 07:10 07:10 RBC 2.99 L (3.80-5.40) m/uL Hgb 9.0 L D (11.4-16.0) gm/dL Hct 27.6 L (34.0-46.0) % Chloride 109 H (98-107) mmol/L Microbiology - Last 24 Hours (Table) 01/13/23 23:00 Blood Culture - Preliminary Blood 01/13/23 00:01 Blood Culture - Preliminary Blood 01/14/23 16:50 Gram Stain - Final Other - Other Wound Culture - Final Escherichia coli
--- NOTE | 2023-01-17 15:37 | P.PN ---
Subjective Progress Note Date: 01/17/23 Principal diagnosis: Reason for follow-up is perforated appendicitis and peritonitis Patient is a 37-year-old female who was brought to the hospital with abdominal pain has been diagnosed with the perforated appendicitis s/p laparoscopic appendectomy. On today's evaluation that is 01/17/2023 the patient denies any fever or any chills, the patient denies shortness of breath chest pain or cough, the patient did have improvement in her nausea , no vomiting abdominal pain has decreased in intensity has been passing some gas but no bowel movement patient white count normalized to 8.0, abdominal culture with an E. coli that is a sensitive pathogen Objective - Vital Signs Vital signs: Vital Signs Temp 98 F 01/17/23 13:17 Pulse 88 01/17/23 13:17 Resp 17 01/17/23 13:17 BP 113/78 01/17/23 13:17 Pulse Ox 97 01/17/23 13:17 FiO2 Intake & Output 01/16/23 01/17/23 01/17/23 18:59 06:59 18:59 Intake Total 1620 2510 Balance 1620 2510 Weight 87.543 kg Intake: Oral 1620 2510 Other: Voiding Method Toilet # Voids 4 4 # Bowel Movements 1 2 - Exam GENERAL DESCRIPTION: Middle-age female up in the room in no distress RESPIRATORY SYSTEM: Unlabored breathing , clear to auscultation anteriorly HEART: S1 S2 regular rate and rhythm , ABDOMEN: Mild distention EXTREMITIES: No edema feet - Labs CBC & Chem 7: 01/17/23 07:10 01/17/23 07:10 Labs: Abnormal Lab Results - Last 24 Hours (Table) 01/17/23 01/17/23 Range/Units 07:10 07:10 RBC 2.99 L (3.80-5.40) m/uL Hgb 9.0 L D (11.4-16.0) gm/dL Hct 27.6 L (34.0-46.0) % Chloride 109 H (98-107) mmol/L Microbiology - Last 24 Hours (Table) 01/13/23 23:00 Blood Culture - Preliminary Blood 01/13/23 00:01 Blood Culture - Preliminary Blood 01/14/23 16:50 Gram Stain - Final Other - Other Wound Culture - Final Escherichia coli Assessment and Plan (1) Peritonitis Current Visit: Yes Status: Acute Code(s): K65.9 - PERITONITIS, UNSPECIFIED SNOMED Code(s): 51095040 (2) Perforated appendicitis Current Visit: Yes Status: Acute Code(s): K35.32 - AC APPENDICITIS W PERF, LOC PERITONITIS, & GANGR, W/O ABSCS SNOMED Code(s): 92856104 (3) Sepsis Current Visit: Yes Status: Acute Code(s): A41.9 - SEPSIS, UNSPECIFIED ORGANISM SNOMED Code(s): 47267369 Plan: 1patient presented hospital with sepsis in this patient who did have a fever and tachycardia elevated white count source is perforated appendicitis in this patient who is status post laparoscopic appendectomy and drainage of the locali zed abscess, the likely organism need to cover will begin to do gram-negative both aerobic and anaerobes 2patient has shown clinical improvement and the patient white count has normalized to continue with the Zosyn plan is to finish therapy with oral Augmentin prescription was sent to the pharmacy Discussed with the surgeon on the floor Dictation was produced using [employer] dictation software. please excuse any grammatical, word or spelling errors. Time with Patient: Less than 30
[2023-01-17] MEDS: KETOROLAC 15 MG/ML 1 ML VIAL IVP SCH (18:00)
[2023-01-17 19:44] VITALS: RESP 16
[2023-01-18] MEDS: ACETAMINOPHEN TAB 500 MG TAB PO SCH ×3 (00:01→11:59)
[2023-01-18] MEDS: KETOROLAC 15 MG/ML 1 ML VIAL IVP SCH ×3 (00:02→11:55)
[2023-01-18] MEDS: SODIUM CHLORIDE 0.9% 1,000 ML IV SCH ×2 (03:42→11:09)
[2023-01-18] MEDS: PIPERACILLIN-TAZOBACTAM 3.375 GM in SODIUM CHLORIDE 0.9% 100 ML IVPB SCH (05:13)
[2023-01-18] MEDS: PANTOPRAZOLE 40 MG TABLET PO SCH (08:12)
[2023-01-18] MEDS: ENOXAPARIN 30 MG/0.3 ML SYRINGE SQ SCH (08:12)
[2023-01-18] MEDS: SIMETHICONE 40 MG/0.6 ML DROPS 2,000 MG/30 ML BOTTLE PO SCH (08:12)
[2023-01-18 08:29] VITALS: BP 111/75; PULSE 87; TEMP 98.1
[2023-01-18] MEDS: SCOPOLAMINE 1 MG/72 HR PATCH TRANSDERM SCH (11:59)
--- NOTE | 2023-01-18 13:32 | P.DS ---
Providers Date of admission: 01/13/23 23:51 Expected date of discharge: 01/18/23 Attending physician: Ban Lemons Consults: 01/14/23 17:37 Consult Physician Routine Consulting Provider: Meek Morales Consult Reason/Comments: Peritonitis, perforated appendicitis antibiotics Do you want consulting provider notified?: Yes, Notify in am Primary care physician: Stated None Hospital Course: Discharge diagnosis 1. Acute appendicitis ruptured with appendiceal abscess and localized peritonitis 2. Seven weeks post- 3. Morbid obesity due to excess calories, BMI 35.3 Hospital course The patient is a 37-year-old female who presents with perforated acute appendicitis. Patient is status post robotic-assisted laparoscopic appendectomy and drainage of appendiceal abscess. Patient tolerated surgery well. Her pain is controlled. She has been up and ambulating. She is tolerating diet. She is having bowel movements. She is afebrile. She is stable for discharge. Incision sites are clean dry and intact. Physician World History Teacher note has been reviewed by physician. Signing provider agrees with the documented findings, assessment, and plan of care. Patient Condition at Discharge: Stable Plan - Discharge Summary New Discharge Prescriptions: New Amoxic-Pot Clav 875-125Mg [Augmentin 875-125] 1 tab PO Q12HR 10 Days #20 tab Ibuprofen [Motrin] 600 mg PO Q8HR PRN #30 tab PRN Reason: Pain Acetaminophen Tab [Tylenol] 1,000 mg PO Q6HR PRN #30 tablet PRN Reason: Pain Discharge Medication List Amoxic-Pot Clav 875-125Mg [Augmentin 875-125] 1 tab PO Q12HR 10 Days #20 tab 01/17/23 [Rx] Acetaminophen Tab [Tylenol] 1,000 mg PO Q6HR PRN #30 tablet 01/18/23 [Rx] Ibuprofen [Motrin] 600 mg PO Q8HR PRN #30 tab 01/18/23 [Rx] Follow up Appointment(s)/Referral(s): Ban Lemons MD [STAFF PHYSICIAN] - 01/26/23 None,Stated [Primary Care Provider] - 1-2 days Activity/Diet/Wound Care/Special Instructions: Wear abdominal binder at all times for comfort. No lifting over 4 pounds in 4 weeks You May shower. No bath tub soaks for two weeks Avoid steak, tough meats and seeds such as raspberry seeds. Use Tylenol and ibuprofen scheduled for the next 24-48 hours for best pain relief. Use ice along incisions for to prevent swelling. Breast feeding parameters: no breast feeding while on antibiotics. Pump and dump breast milk interim. May resume breast feeding 48-hrs after completion of antibiotic treatment Telephone follow-up visit with Dr. Lemons on 01/26/2023 Discharge Disposition: HOME SELF-CARE
== END 2023-01-18 12:36 | disposition home or self-care (01) | DRG 853 ==
LOC: EC 23:00 → 4SSUR 23:51 → 5NMEDONC 01-14 17:51
PROVIDERS: ADMIT Surgery Plastic and Reconstructive Surgery; ATTEND Surgery Plastic and Reconstructive Surgery
PROC: 0D9J3ZZ Drainage of Appendix, Percutaneous Approach (ICD-10-PCS; 2023-01-14)
PROC: 8E0W4CZ Robotic Assisted Procedure of Trunk Region, Percutaneous Endoscopic Approach (ICD-10-PCS; 2023-01-14)
PROC: 0DTJ4ZZ Resection of Appendix, Percutaneous Endoscopic Approach (ICD-10-PCS; principal; 2023-01-14 08:55)
DX: A41.51 Sepsis due to Escherichia coli [E. coli] (principal); K35.33 Acute appendicitis with perforation, localized peritonitis, and gangrene, with abscess; K56.50 Intestinal adhesions [bands], unspecified as to partial versus complete obstruction; E66.01 Morbid (severe) obesity due to excess calories; Z68.38 Body mass index [BMI] 38.0-38.9, adult
CPT/HCPCS: 80048; 80051; 80053; 83605; 84703; 85025; 85027; 87040; 87070; 87075; 87077; 87186; 87205; 96361; 96365; 96366; 96367; 96375; 99285